=== PATIENT | male | born 1980 | race Hispanic/Latino ===

== ENCOUNTER 2016-05-31 03:22 | Emergency (ER) | payer OTHER ==
[~2016-05-31] VITALS: Ht 172.7 cm; Wt 72.6 kg
--- NOTE | 2016-05-31 03:41 | ED Upper Extremity ---
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 ( SUBC[employer]ED FOR [employer] ) PT WAS LIFTING THE TOP OF A SCALE AND SMASHED RIGHT FINGERS BETWEEN TOP AND BOTTOM OF SCALE--WEIGHS APPROXIMATELY 100 LBS. NO NUMBNESS/TINGLING DOES HAVE VERY LIMITED ROM TO RIGHT 3RD AND 4TH FINGERS NO OTHER INJURIES PT IS RIGHT HANDED NO PRIOR INJURY TO THIS HAND/FINGERS. NO PCP Allergies and Home Medications Allergies Coded Allergies: No Known Drug Allergies (Unverified , 05/31/16) Home Medications Hydrocodone/Ibuprofen 1 Each Tablet, 1-2 EACH PO Q4H, #20 Prescribed by: ABIGAIL KLINE on 05/31/16 0424 Sulfamethoxazole/Trimethoprim 1 Each Tablet, 1 EACH PO BID, #20 Prescribed by: ABIGAIL KLINE on 05/31/16 0424 Constitutional: no symptoms reported Musculoskeletal: see HPI Skin: see HPI (ABRASIONS TO RIGHT 3RD AND 4TH FINGERS) Psychiatric/Neurological: No Symptoms Reported Past Hyowxep-Rphktr-Pxewnc Hx Patient Social History Alcohol Use: Denies Use Recreational Drug Use: No Smoking Status: Never a Smoker Recent Foreign Travel: No Contact w/Someone Who Travel: No Immunizations Up To Date Tetanus Booster (TDap): More than 5yrs Surgeries HX Surgeries: No Respiratory Hx Respiratory Disorders: No Cardiovascular Hx Cardiac Disorders: No Neurological Hx Neurological Disorders: No Reproductive System Hx Reproductive Disorders: No Genitourinary Hx Genitourinary Disorders: No Gastrointestinal Hx Gastrointestinal Disorders: No Musculoskeletal Hx Musculoskeletal Disorders: No Endocrine Hx Endocrine Disorders: No HEENT HX ENT Disorders: No Cancer Hx Cancer: No Psychosocial Hx Psychiatric Problems: No Integumentary HX Skin/Integumentary Disorder: No Blood Transfusions Hx Blood Disorders: No Physical Exam Vital Signs Vital Sign - Last 12Hours 05/31/16 03:30 Temp 98.3 Pulse 57 Resp 16 B/P (MAP) 127/81 Pulse Ox 97 Capillary Refill : General Appearance: WD/WN, no apparent distress Wrist: Yes normal inspection Hand: Right (3RD AND 4TH FINGERS WITH MILD TO MODERATE SWELLING. ABRASIONS AND ECCHYMOSIS TO FINGERS, AND DEFORMITY OF 4TH FINGER. DISTAL SENSATION AND VASCULAR INTACT. 4TH FINGER WITH OPEN FRACTURE, WITH 1/2 CM LACERATION/PUNCTURE THROUGH SKIN, MODERATE OOZING OF BLOOD FROM SITE. 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 II-XII nml as tested, alert, normal mood/affect, oriented x 3 Skin: normal color, warm/dry, other ( ABOVE) Laceration Repair : Other Wound Location RIGHT 4TH FINGER Wound Length (cm): 0.5 Wound's Depth, Shape: linear Wound Explored: clean Irrigated w/ Saline (ccs): 500 Betadine Prep?: No (BETASEPT) Anesthesia: 1% Lidocaine (2% LIDOCAINE, PLAIN) Suture: Ethlion Suture Size: 4-0 Number of Sutures: 1 Sterile Dressing Applied?: Yes Progress BLEEDING CONTROLLED WITH SUTURE Splinting and Joint Reduction : Pre-Proc Neuro Vasc Exam: normal Post-Proc Neuro Vasc Exam: normal Progress FRACTURE AREA INJECTED WITH 2% LIDOCAINE PLAIN FRACTURE REDUCED EASILY POST OP FILM SHOWS ADEQUATE ALIGNMENT WOUND IRRIGATED WITH 500 ML SALINE + BETASEPT 1 SUTURE OF 4-0 ETHILON PLACED TO CONTROL BLEEDING BACTROBAN, AND STERILE DRESSING PLACED 4TH AND 3RD FINGERS BOTH SPLINTED PT TOLERATED WELL. Splint Application: Finger (SPLINTS TO 3RD AND 4TH FINGERS, RIGHT HAND) Progress/Results/Core Measures Results/Orders My Orders Orders - ABIGAIL KLINE DO Dipht,Pertuss(Acell),Tet Adult (Boostrix (05/31/16 03:45) Hand, Right, 3 Views (05/31/16 03:35) Lidocaine 2% Injection 20 Ml (Xylocaine (05/31/16 04:00) Lidocaine 2% Injection 20 Ml (Xylocaine (05/31/16 03:47) Finger(S) (05/31/16 04:01) Rx-Mupirocin 2% Oint (Rx-Bactroban) (05/31/16 04:19) Rx-Trimeth/Sulfameth Ds Tab (Rx-Bactrim/ (05/31/16 04:19) Hydrocodone/Apap 5/325 Tablet (Lortab 5 (05/31/16 04:30) Hydrocodone/Apap 5/325 Tablet (Lortab 5 (05/31/16 04:17) Rx-Trimeth/Sulfameth Ds Tab (Rx-Bactrim/ (05/31/16 04:17) Mupirocin Ointment (Bactroban Ointment (05/31/16 04:18) Splint Application Finger (05/31/16 04:23) Medications Given in ED Current Medications Medications Dose Ordered Sig/Alexei Route Start Time Stop Time Status Last Admin Dose Admin Diphtheria/ Tetanus/Acell Pertussis 0.5 ml ONCE ONCE IM 05/31/16 03:45 05/31/16 03:46 DC 05/31/16 03:39 0.5 ML Lidocaine HCl 20 ml ONCE ONCE INJ 05/31/16 04:00 05/31/16 04:01 DC 05/31/16 03:56 20 ML Vital Signs/I&O Vital Sign - Last 12Hours 05/31/16 03:30 Temp 98.3 Pulse 57 Resp 16 B/P (MAP) 127/81 Pulse Ox 97 Diagnostic Imaging Comments XRAYS RIGHT HAND--NON DISPLACED FRACTURE 3RD FINGER, MIDDLE PHALANX. ANGULATED FRACTURE 4TH FINGER, MIDDLE PHALANX POST-REDUCTION FILM--ADEQUATE ALIGNMENT OF FRACTURE / 4TH FINGER, MIDDLE PHALANX ALL PENDING RADIOLOGIST REVIEW Reviewed: Reviewed by Me Departure Communication Progress Notes 0400--SPOKE WITH DR. VELEZ, ORTHOPEDIC SURGEON SOLID TIRE FINISHER. HE WILL SEE PT IN CLINIC IN [place] THIS AM AT 08:00 Impression Impression: Primary Impression: OPEN , ANGULATED FRACTURE RIGHT 4TH FINGER Additional Impressions: NON-DISPLACED FRACTURE OF RIGHT 3RD FINGER Ygahzilmbs-[id number] (DPT) vaccination administered at current visit CRUSH INJURY TO RIGHT 3RD AND 4TH FINGERS Disposition: 01 HOME, SELF-CARE Condition: Stable Departure-Patient Inst. Referrals: EMMA VELEZ MD NO,LOCAL PHYSICIAN (PCP) Primary Care Physician Patient Instructions: Diphtheria and Tetanus Toxoids, and Acellular Pertussis Vaccine, Finger Fracture (DC), SPLINT CARE Add. Discharge Instructions: ICE TO AREA AT 20 MINUTE INTERVALS WEAR SPLINT AT ALL TIMES LEAVE DRESSING IN PLACE FOLLOW UP IN DR. VELEZ'S OFFICE IN [place] THIS MORNING AT 08:00 All discharge instructions reviewed with patient and/or family. Voiced understanding. Scripts Hydrocodone/Ibuprofen (Hydrocodone-Ibuprofen 7.5-200) 1 Each Tablet 1-2 EACH PO Q4H for Pain, #20 TAB Prov: ABIGAIL KLINE DO 05/31/16 Sulfamethoxazole/Trimethoprim (Bactrim Ds Tablet) 1 Each Tablet 1 EACH PO BID, #20 TAB Prov: ABIGAIL KLINE DO 05/31/16 Images Extremities-Upper Progress SEE ADDITIONAL PAPER DIAGRAMS FOR IMAGES ABIGAIL KLINE DO May 31, 2016 03:41
[2016-05-31] MEDS ORDERED: TETANUS,DIPTH,PERTUSS P/F (BOOSTRIX) 0.5 ML VIAL IM ONE (03:45)
[2016-05-31] MEDS ORDERED: LIDOCAINE 2% 20 ML (XYLOCAINE) VIAL ONE (03:47)
[2016-05-31] MEDS ORDERED: LIDOCAINE 2% 20 ML (XYLOCAINE) VIAL INJ ONE (04:00)
[2016-05-31] MEDS ORDERED: HYDROcodone/APAP 5 MG/325 MG (LORTAB) TAB ONE (04:17)
[2016-05-31] MEDS ORDERED: RX-TRIMETH/SULFA. 160-800 MG (BACTRIM DS) TAB PPK#2 PO ONE (04:17)
[2016-05-31] MEDS ORDERED: MUPIROCIN 2% OINT 22 GM (BACTROBAN) TUBE ONE (04:18)
[2016-05-31] MEDS ORDERED: RX-MUPIROCIN (BACTROBAN) 2% OINT 22 GM TUBE TOP STA (04:19)
[2016-05-31] MEDS ORDERED: RX-TRIMETH/SULFA. 160-800 MG (BACTRIM DS) TAB PPK#2 PO STA (04:19)
[2016-05-31] MEDS ORDERED: HYDR-87 PO (04:24)
[2016-05-31] MEDS ORDERED: SULF1TAB35 PO (04:24)
[2016-05-31] MEDS ORDERED: HYDROcodone/APAP 5 MG/325 MG (LORTAB) TAB PO ONE (04:30)
[2016-05-31 04:31] VITALS: BP 127/81
--- NOTE | 2016-05-31 06:28 | Diagnostic Imaging Report ---
INDICATION: Post reduction. FINDINGS: Fracture noted of the middle third and fourth phalanx. There has been adequate realignment of the fourth phalanx fracture. The distal and proximal interphalangeal joints appear normal. IMPRESSION: Satisfactory post reduction of the fourth middle phalanx fracture. Dictated by: Dictated on workstation # [id number]
--- NOTE | 2016-05-31 07:24 | Diagnostic Imaging Report ---
INDICATION: Crush injury to hand. There is a fracture of the proximal aspect of the middle phalanx of the third digit which shows good alignment. Fracture does not appear to extend into the PIP joint. There is fracture of the midshaft of the fourth middle phalanx. There is approximately 45 degrees of angulation. No involvement of the DIP or PIP joints noted. IMPRESSION: Fracture third and fourth middle phalanx as described. Dictated by: Dictated on workstation # [id number]
== END 2016-05-31 04:31 | disposition home or self-care (01) ==
LOC: ER 03:26
DX: S62.624B Displaced fracture of middle phalanx of right ring finger, initial encounter for open fracture (principal); S62.642A Nondisplaced fracture of proximal phalanx of right middle finger, initial encounter for closed fracture; Z23 Encounter for immunization; W23.0XXA Caught, crushed, jammed, or pinched between moving objects, initial encounter; Y92.59 Other trade areas as the place of occurrence of the external cause; Y99.0 Civilian activity done for income or pay
CPT/HCPCS: 26725; 29130; 73130; 73140; 90471; 90715

== ENCOUNTER 2016-07-20 12:52 | Outpatient (RCR) | payer OTHER ==
[~2016-07-20 12:52] MED LIST: HYDR-87 PO; SULF1TAB35 PO
== END 2016-08-02 11:19 | disposition home or self-care (01) ==
PROVIDERS: ATTEND Orthopaedic Surgery
DX: S62.624D Displaced fracture of middle phalanx of right ring finger, subsequent encounter for fracture with routine healing (principal); S62.642D Nondisplaced fracture of proximal phalanx of right middle finger, subsequent encounter for fracture with routine healing